=== PATIENT | female | born 1945 | race Caucasian/White ===

== ENCOUNTER 2016-10-27 09:44 | Outpatient (CLI) | payer OTHER ==
--- NOTE | 2016-10-27 11:28 | DIAGNOSTIC IMAGING REPORT ---
PROCEDURE: MR LTD LOWER EXT JOINT-RIGHT INDICATION: RT KNEE OSTEOARTHRITIS (CHANG/NEPHEW PROTOCOL) Chang and Nephew protocol for preop knee replacement. TECHNIQUE: Limited MRI of the knee was performed with high-resolution PD sagittal images. In addition, AP radiographs of the lower extremity were obtained with scanogram markers. Diagnostic interpretation is not provided. IMPRESSION: 1. Preoperative Chang and Nephew protocol for knee prosthesis.
== END 2016-10-27 23:00 ==
LOC: MRI SRH 09:44
DX: Z01.818 Encounter for other preprocedural examination (principal); M17.11 Unilateral primary osteoarthritis, right knee

== ENCOUNTER 2016-12-10 12:10 | Outpatient (CLI) | payer OTHER ==
--- NOTE | 2016-12-10 12:51 | DIAGNOSTIC IMAGING REPORT ---
PROCEDURE: XR CHEST 2 VIEW INDICATION: PRE OP TECHNIQUE: PA and lateral views. COMPARISON: Chest 07/09/2011 FINDINGS: Lungs are clear. Heart and mediastinum are normal. Thorax is normal. IMPRESSION: 1. Negative chest.
--- NOTE | 2016-12-16 14:24 | Postoperative Progress Note ---
Postop Progress Note Preoperate Diagnosis: OA right knee Postoperative Diagnosis: Same Surgeon: Jaya Grossman MD Anesthesia: General ETT Findings: OA right knee Procedure: Right TKA Complications? No Condition: Stable EBL: 300cc Fluid(s): 0 Blood Administered: 0 Specimen(s) removed? Yes Specimen removed/disposition: Bone and tissue right knee Grafts or Implants? Yes Graft/Implant type: Right TKA . (See nursing notes for details of grafts/implants)
== END 2016-12-10 23:00 ==
LOC: RT SRH 12:10
DX: Z01.818 Encounter for other preprocedural examination (principal)
CPT/HCPCS: 90001; 90004; 90074; 90100; 90155; 90469; 91004; 91239; 91286; 94060; 95059; 95150

== ENCOUNTER 2016-12-11 15:37 | Inpatient (IN) | payer OTHER ==
--- NOTE | 2016-12-10 12:52 | HISTORY AND PHYSICAL ---
ADMITTED: 12/16/2016 CHIEF COMPLAINT: 1. Right knee pain. 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 She also having giving way episodes and says she has had several falls. More recently, she fell and injured her back and she would like to proceed with a knee replacement surgery as planned. The patient will be coming on 12/16/2016 for that surgery and the nature of the surgery, how I would go about doing it, where the incision would be, the type of prosthetic components that would be used, the risk of infection, of need for further surgery, of failure, of stiffness, of pain, of blood clots in the leg, were all explained to her and she understands and accepts and would like to proceed with surgery. MEDICAL/SURGICAL HISTORY: Past history is positive only for osteoarthritis and for hypertension and she otherwise has been healthy. Denies any other serious medical illness including DE, CVA, diabetes or cancer of any kind. MEDICATIONS: 1. Amlodipine 5 mg a day. 2. Atenolol. I do not have the dosage which she takes once a day. 3. Magnesium oxide 400 mg a day. 4. Potassium supplementation daily. 5. Sertraline 50 mg daily. 6. Excedrin. 7. Tylenol as needed for pain. 8. Glucosamine. 9. Fish oil concentrate. 10. Mattaponi howe naturopathic remedy. 11. She takes vitamin C 1000 mg a day. 12. Vitamin D3, 1000 units a day. ALLERGIES: 1. PENICILLIN CAUSES HER TO HAVE A RASH AND HIVES. SOCIAL HISTORY: Negative for smoking and says she was never smoker. FAMILY HISTORY: REVIEW OF SYSTEMS: Negative except for the knee problems and she denies any headache, loss of consciousness, seizure disorder, problems with vision, hearing, or balance at this time and she has had no chest pain or shortness of breath, palpitations. No nausea, vomiting, or diarrhea. No dysuria. No other musculoskeletal complaints, other than the low back pain and knee pain as described above. PHYSICAL EXAMINATION: VITAL SIGNS: Height 65-1/2 inches, weight of 160, BMI of 26.22, blood pressure 144/82, pulse 68. HEENT: Head is normocephalic and atraumatic. Her eyes are clear. Extraocular muscles are intact. Hearing is grossly normal. There is no drainage from the ear canals. Mouth and posterior oropharynx are clear and teeth are in good repair. Tongue is midline. NECK: Without jugular venous distention. HEART: Regular rate and rhythm without murmur heard. LUNGS: Clear to auscultation. ABDOMEN: Mildly obese. EXTREMITIES: For the knee exam, I will refer you to my previous clinic notes but she does have some chronic edema and pain. LAB/IMAGING: MRI shows her to have significant areas of avascular necrosis involving the medial femoral condyle with large defects being present and erosion of the articular cartilage. IMPRESSION: 1. Arthritis and avascular necrosis of the right knee. PLAN: For knee replacement surgery as outlined above. The risks and benefits were explained to her, all her questions were answered today and she will have the surgery on 12/16/2016 barring unforeseen complication or problem.
[~2016-12-11] VITALS: Ht 167.6 cm; Wt 76.9 kg
[2016-12-12] MEDS ORDERED: AMLODIPINE BESYL5 MG PO (13:46)
[2016-12-12] MEDS ORDERED: ATENOLOL100 MG PO (13:48)
[2016-12-12] MEDS ORDERED: SERTRALINE HCL50 MG PO (13:48)
[2016-12-12] MEDS ORDERED: FLONASE AL50 MCG/ACT (13:49)
[2016-12-12] MEDS ORDERED: MAGNESIUM400 M1 PO (13:49)
[2016-12-12] MEDS ORDERED: FISH OIL1000 M1 PO (13:49)
[2016-12-16] VITALS (9 sets, daily range): BP systolic 120–143; BP diastolic 54–84
--- NOTE | 2016-12-16 15:08 | OPERATIVE REPORT ---
DATE OF SURGERY: 12/16/2016 SURGEON: JOSE ALBERTO LIZ MD PREOPERATIVE DIAGNOSIS: 1. Osteoarthritis, right knee POSTOPERATIVE DIAGNOSIS: 1. Osteoarthritis right knee OPERATIONS/PROCEDURES: Operation proposed was a right knee replacement. Operation Performed: Same. PATHOLOGY SPECIMEN: A piece of bone from the femur, tibia, and patella, the menisci, the anterior cruciate ligament and the infrapatellar fat pad. SURGICAL TECHNIQUE: The patient was taken to the operating room, where she was given general anesthetic. A tourniquet was applied to the right thigh and the leg was prepped and draped in the usual sterile fashion. She had a longitudinal incision made directly anteriorly over the knee. It was carried down through subcutaneous tissue. A standard medial parapatellar approach to the knee was performed. A limited medial release was performed and then removed the anterior horns of the menisci, the anterior cruciate ligament and the major portion of the infrapatellar fat pad. The distal femoral cutting block was pinned into place and a distal femoral cut was made and then the patient had I believe was a #4 size femoral block seated into position and pinned in place and we made the anterior, posterior, and chamfer cuts. The block was then removed and we subluxed the tibia forward and put her in maximal flexion, used the extramedullary guide to make the tibial cut and sized the tibia. The original plan had been to use a #3 size tibia but we ended up abusing 4 as it was just a better fit all the way around and we pinned that it place, made the drill hole for the stem and cut out for the pins with the supplied special osteotome from the Chang and Nephew set and then did a trial reduction with the thinnest of the tibial inserts. With this, we were able to get full extension and full flexion without difficulty. She was stable throughout. Patellar tracking was good and then removed the trial instruments, exsanguinated the limb and inflated the tourniquet to 350 mmHg. I made the patellar cut and sized it. It was found to be 32 mm size and we made the drill holes for the lugs on the patellar component and then chamfered the margins where the patella was a little bit wider than it was long and chamfered off the medial and lateral side to match and then undercut the holes with a small curette. She had pulse lavaging of the knee and we cleaned up what remaining little bits of soft tissue liked they might impinge but we removed the meniscal in their entirety by this point as well as the anterior cruciate ligament and again the major portion of the infrapatellar fat pad. After cleaning and drying the cut surfaces of the bone, we took methylmethacrylate cement that had been vacuum mixed, placed it on the cut surface of the tibia on the back side of the tibial component, seated it down into place, removed the extruded cement from around the margins, seated the plastic insert on the baseplate and then put more cement on the cut surface of the femur on the back side of the femoral component and she did have a fairly large cyst in the medial femoral condyle that was removed. There were a couple of them. Actually one of them was pretty much remove when we made the drill holes for the lugs and the another one had curetted out and filled it with cement and then put the femoral component into place, seated it down in place, removed the extruded cement, put the knee in extension, more cement was placed on the cleaned and dried surface of the patella for the backside of the patellar component. It was clamped in place. The cement was removed from around the margins and the clamp was left in place while the cement hardened. Once it did, we went through a range of motion and again she had full flexion and full extension immediately possible, she was stable. The patella had a slight tendency to tilt laterally and so I did a limited lateral release just along the margin of the patella on the lateral side and with this then, the patellar tracking was better and we closed using #2-0 nonabsorbable braided suture running from bottom to top and then oversewing along the margin of the patella with more running #2 nonabsorbable braided suture. The subcutaneous layer was closed with 2-0 Polysorb running suture and the skin with a 3-0 Polysorb running suture and we did deflate the tourniquet before closing the skin. Once it was closed, we dressed her with Xeroform and ABD pads, wrapped with a sterile Webril and Kishor bandage loosely applied. I did inject Dr. Hamilton's combination of local anesthetics and Decadron into the knee, around the femur prior to the closure and she tolerated that without any problem and after the knee was closed and dressed, she was awakened and taken to the recovery room in stable condition. Estimated blood loss was about 300 mL. There were no complications encountered.
--- NOTE | 2016-12-16 15:12 | DIAGNOSTIC IMAGING REPORT ---
PROCEDURE: XR KNEE 1 OR 2 VIEWS - RIGHT INDICATION: post-op right tka TECHNIQUE: Two-views COMPARISON: Right knee films 10/15/16 FINDINGS: The patient is status post a total knee replacement on the right. The components are in good position. IMPRESSION: 1. Status post right total knee replacement
[2016-12-17 01:50] VITALS: BP 132/54
[2016-12-17 06:26] VITALS: BP 125/68
[2016-12-17 10:52] VITALS: BP 122/57
[2016-12-17 14:30] VITALS: BP 129/66
--- NOTE | 2016-12-17 14:34 | Progress Note ---
Subjective General VSS Afeb Moderate pain, no other c/o. Doing well with PT Continue PT. Celebrex round the clock and Oxycodone prn for pain.
--- NOTE | 2016-12-17 14:34 | Progress Note ---
Subjective General VSS Afeb Moderate pain, no other c/o. Doing well with PT Continue PT. Celebrex round the clock and Oxycodone prn for pain.
[2016-12-17 18:35] VITALS: BP 124/58
[2016-12-17 22:49] VITALS: BP 122/61
[2016-12-18 01:55] VITALS: BP 137/64
[2016-12-18 06:29] VITALS: BP 139/68
--- NOTE | 2016-12-18 07:13 | Progress Note ---
Subjective General VSS Afeb No c/o, mod pain. Continue PT DC IV
--- NOTE | 2016-12-18 07:13 | Progress Note ---
Subjective General VSS Afeb No c/o, mod pain. Continue PT DC IV
[2016-12-18] MEDS ORDERED: OXYCODONE IR PO (07:14)
[2016-12-18] MEDS ORDERED: ROXICODONE5 MG PO (07:16)
[2016-12-18 11:06] VITALS: BP 132/73
[2016-12-18 14:00] VITALS: BP 136/68
[2016-12-18 18:23] VITALS: BP 169/84
[2016-12-18 23:10] VITALS: BP 168/74
[2016-12-19 02:31] VITALS: BP 166/81
[2016-12-19 06:44] VITALS: BP 174/87
--- NOTE | 2016-12-19 08:00 | Progress Note ---
Subjective General BP up Afeb Tmax 99 Feels better, pretty good pain control with PO Oxycodone Bandage dry and clean Wants to go home. She's been doing OK with PT. DC home today.
[2016-12-19] MEDS ORDERED: OXAYDO5 MG PO (08:05)
--- NOTE | 2016-12-19 08:07 | Provider's Discharge Care Plan ---
Problem, Goal, Plan Problem List 1. Osteoarthritis, knee
--- NOTE | 2016-12-19 08:07 | Provider's Discharge Care Plan ---
Problem, Goal, Plan Problem List 1. Osteoarthritis, knee
--- NOTE | 2016-12-19 08:34 | DISCHARGE SUMMARY ---
ADMIT DATE: 12/16/2016 DISCHARGE DATE: 12/19/2016 DISCHARGE DIAGNOSIS: Arthritis of the right knee. HISTORY OF PRESENT ILLNESS: The patient had arthritis of the knee and got progressively more severe and had come to the point where no conservative treatment was helping for her pain and she was admitted for knee replacement surgery. HOSPITAL COURSE: The patient was admitted to the hospital and underwent surgery for right knee replacement on the date of admission. Postoperatively, no serious complications were encountered. By the time of discharge, she was making good progress with physical therapy. Her bandages were clean and dry. Her maximum temperature was only 99 and she was feeling better. Her pain was controlled well with p.o. pain medications and she wanted to be discharged home and was discharged in good condition on 12/19/2016 to continue with her regular medications as prescribed by her primary care physician. She will also take an aspirin 325 mg twice daily and I ordered oxycodone that she can take 5 mg 1-2 tabs every 4 hours as needed for pain. She will follow up in our orthopedic clinic in 6 days. Condition at discharge is stable. The prognosis is good. The discharge status is home.
[2016-12-19 09:55] VITALS: BP 116/52
== END 2016-12-19 11:00 | disposition home or self-care (01) | DRG 470 ==
LOC: SCU SRH 12-16 09:05 → U SRH 12-16 11:00 → ACUTE2 SRH 12-16 15:34
PROVIDERS: ADMIT Orthopaedic Surgery
PROC: 0SRC0J9 Replacement of Right Knee Joint with Synthetic Substitute, Cemented, Open Approach (ICD-10-PCS; principal; 2016-12-16 11:00)
DX: M17.11 Unilateral primary osteoarthritis, right knee (principal); M87.9 Osteonecrosis, unspecified; M89.751 Major osseous defect, right pelvic region and thigh; I10 Essential (primary) hypertension

== ENCOUNTER 2017-03-15 17:30 | Emergency (ER) | payer OTHER ==
[~2017-03-15 17:30] MED LIST: AMLODIPINE BESYL5 MG PO; ATENOLOL100 MG PO; FISH OIL1000 M1 PO; FLONASE AL50 MCG/ACT; MAGNESIUM400 M1 PO; OXAYDO5 MG PO; OXYCODONE IR PO; ROXICODONE5 MG PO; SERTRALINE HCL50 MG PO
--- NOTE | 2017-03-15 19:03 | DIAGNOSTIC IMAGING REPORT ---
PROCEDURE: XR CHEST 1 VIEW INDICATION: SHORTNESS OF BREATH TECHNIQUE: Portable AP view (1755 hours) COMPARISON: Compared to chest x-ray on 12/10/2016. FINDINGS: Allowing for overlying wires and electrodes, lungs are clear. Borderline cardiomegaly with pulmonary vascular congestion. No evidence of interstitial edema. Mediastinum is normal. Moderate levoscoliosis of the thoracolumbar spine with degenerative changes. IMPRESSION: 1. Borderline cardiomegaly and pulmonary vascular congestion. While there is no evidence of interstitial edema, consider the possibility of occult congestive heart failure. 2. Otherwise negative chest. 3. Findings discussed with Dr. Erlinda Larios.
--- NOTE | 2017-03-15 22:04 | ED ORDER SUMMARY ---
..... Patient: FABIÁN MOHAN OrderSheet [facility] VisitID: [id number] [place] [address] 72y, F Registration Date/Time: 03/15/2017 ORDER SHEET Weight: 71.6 kg (stated) Allergies: Penicillin GENERAL ORDERS: [employer] Project Manager (Continuous) (17:45 03/15/2017 JSimbeck R.N. per protocol) (17:45 JSimbeck R.N.) Chest 1V Urgent (17:45 03/15/2017 JSimbeck R.N. per protocol) (Ack 17:54 Chelsea) (18:36 WDavenptracy) CBC w Diff Urgent (17:45 03/15/2017 JSimbeck R.N. per protocol) (17:45 JSimbeck R.N.) CMP Urgent (17:45 03/15/2017 JSimbeck R.N. per protocol) (17:45 JSimbeck R.N.) Cardiac Panel Stat (17:45 03/15/2017 JSimbeck R.N. per protocol) (17:45 JSimbeck R.N.) PT with INR Urgent (17:45 03/15/2017 JSimbeck R.N. per protocol) (17:45 JSimbeck R.N.) PTT Urgent (17:45 03/15/2017 JSimbeck R.N. per protocol) (17:45 JSimbeck R.N.) Pulse oximeter (17:45 03/15/2017 JSimbeck R.N. per protocol) (17:45 JSimbeck R.N.) EKG - ER Stat (17:45 03/15/2017 JSimbeck R.N. per protocol) (17:45 JSimbeck R.N.) (17:46 PWeiler ER Tech1) UA-Culture if indicated Urgent (18:46 03/15/2017 Day ROLLE) (Ack 18:54 Chelsea) (20:07 DDean R.N.) BNP Urgent (19:12 03/15/2017 Day ROLLE) (Ack 19:32 [place] ER Macadam Raker) (22:12 RMarsden R.N.) US Abdomen Limited (No) Urgent (20:41 03/15/2017 Day ROLLE) (Ack 20:46 [facility] ER Macadam Raker) (22:29 Daria CorreiaNLuz) MEDICATION ORDERS: IV FLUIDS: IV Saline Lock (17:45 03/15/2017 Kimberley Mccormick.NLuz per protocol) (17:46 Kimberley Mccormick.N.) Lasix IV 80 mg (NOW) (19:28 03/15/2017 Day ROLLE) (Ack 20:09 Mika R.N.) (20:15 Mkia R.N.) ORDER SHEET NOTES: [Electronically signed by Erlinda Larios MD (22:06 03/15/2017)] [Electronically signed by Kristen Barajas R.N. (14:51 03/16/2017)] [Electronically locked/signed by Kristen Barajas R.N. (14:51 03/16/2017)]
--- NOTE | 2017-03-15 22:04 | ED NURSING NOTES ---
Clinical Report - Nurses [facility] [address] [place] [address] 03/15/2017 17:31 [id number] Triage time 17:35. Acuity: LEVEL 3. Chief Complaint: (Onset 3 days ago: Chills, "hot sweats", legs and arms "feel like weight", diarrhea, abd pain without nauasea, "head kind of foggy", SOB with any activity. 8/10 pain in her back, neck, shoulders, increases with breathing.). SEPSIS SCREEN: Sepsis Screen. Negative (no infection suspected/documented). JESUS ALBERTO COMA SCORE: Jesus Alberto Coma Scale: 15- eyes open spontaneously (4); best verbal response- oriented x 4 (5); best motor response- obeys commands (6). --17:44 Noe Segovia R.N. 17:34 03/15/17. BP: 152/64. HR: 93. RR: 16. O2 saturation: 95% on room air. Temp: 98.1 F (oral). Pain level now: 8/10. --17:44 Noe Segovia R.N. Weight: 71.6 kg stated. Height/Length: 66 inches Per Patient. BMI: 25.5. --17:39 Noe Segovia R.N. Medications AmLODIPine Besylate Oral. --17:38 Noe Segovia R.N. Atenolol Oral. --17:38 Noe Segovia R.N. Sertraline HCl Oral. --17:39 Noe Segovia R.N. Allergies Penicillin. --17:38 Noe Segovia R.N. History Arrived by private vehicle. Historian: patient. Accompanied by family. SOCIAL HX: Never smoker. Occasional alcohol use. No drug use. ABUSE ASSESSMENT: No report of abuse. --17:44 Noe Segovia R.N. PROBLEMS: Depression. Hypertension. --17:40 Noe Segovia R.N. ADDITIONAL SURGERIES: Hysterectomy. Right knee replacement. --17:40 Noe Segovia R.N. Interventions ID band on patient. To treatment room. --17:44 Noe Segovia R.N. PHYSICAL ASSESSMENT late entry -17:39. Ambulatory to room. ( upper back and bilat shoulder pain). GENERAL / NEURO / PSYCH: Alert. Oriented X 4. Appears in pain. HEENT: Pupils equal, round and reactive to light. No facial asymmetry noted. Mucous membranes are pink. RESPIRATORY: Mild respiratory distress. The patient can speak in full sentences. Chest nontender. Breath sounds within normal limits. CVS: Cardiac rhythm: normal sinus rhythm; right bundle branch block. Capillary refill less than 2 seconds. Pulses within normal limits. GI / : Abdomen soft and normal bowel sounds. Abdominal tenderness diffusely. SKIN: Skin is warm and dry. Normal skin turgor. --19:25 Noe Segovia R.N. NURSING PROGRESS NOTES 17:40 03/15/2017 Site #1 started via IV in the right antecubital space with an 18g angiocath, with aseptic technique and good blood return; one attempt. Blood drawn: rainbow set. Labeled in the presence of the patient and sent to the lab. Saline lock flushed with 10 mL saline (by ZULLY Reyes). --17:46 Noe Segovia R.N. 17:45 03/15/17. HR: 44 (regular). ED physician notified. --17:57 Noe Segovia R.N. 20:00. Patient ID band checked for patient name and birthdate. Clean catch urine collected with return of yellow-colored ck-colored clear urine; sample sent to lab for urinalysis and culture. Specimen labeled in the presence of the patient. ( First contact with pt. Pt given additional blanket and UA sent to lab). --20:08 Kristen Barajas R.N. 20:10 03/15/2017 Lasix IVP 80 mg given over 2 minute(s) via site #1. IV patency established. IV site checked: no pain, redness, or swelling. IV flushed thoroughly pre- and post-medication administration. IVP given by RN. --20:15 Kristen Barajas R.N. 20:00 03/15/17. BP: 133/66. HR: 44. RR: 16. O2 saturation: 98%. Temp: deferred. Pain level now: 0/10. --20:16 Kristen Barajas R.N. 20:17 03/15/17. ( ERMD in to talk with pot about CHF findings and need for lasix. talking with pt a bout US ordered, and liver function tests). --20:17 Kristen Barajas R.N. The patient reports no complaints and she is calm. Overall patient status is improved- she states feels better. ( better while laying down). --20:41 Gia John R.N. 20:37 03/15/17. BP: 133/111. HR: 52. RR: 16. O2 saturation: 97%. Temp: 98.1 F. Pain level now 0/10. --20:41 Gia John R.N. DISPOSITION / DISCHARGE 22:19 03/15/2017 Site #1 removed upon discharge. Manual pressure and bandaid applied. --22:29 Cornelia Sutton R.N. 22:24. No learning barriers present. Discharge instructions provided and reviewed with the patient and spouse. Reviewed warnings. Treatments reviewed. Reviewed referrals. Follow up contact number. Patient and spouse verbalized understanding. Written instructions provided in Greenlandic. The patient was discharged home and accompanied by spouse. She left the Emergency Department in a wheelchair and via private vehicle. Spouse driving. --22:37 Cornelia Sutton R.N. 22:03/15/17. BP: 136/65. HR: 50. RR: 16. O2 saturation: 100%. Temp: deferred. Pain level now: 0/10. --22:37 Cornelia Sutton R.N. Locked/Released at 03/16/2017 14:51 by Kristen Barajas R.N.
--- NOTE | 2017-03-15 22:04 | ED CLINICAL REPORT ---
Clinical Report - Physicians/Mid Levels [facility] [address] [place] [address] 03/15/2017 17:31 Patient: FABIÁN MOHAN Time Seen: 17:53. Arrived- By private vehicle. Historian- patient. HISTORY OF PRESENT ILLNESS Chief Complaint: DYSPNEA. This started several days ago and is still present. The dyspnea is described as moderate and is worsened by walking and exertion and is improved by rest. No cough, sputum production, fever, sweating episodes or wheezing. No chills, chest pain or discomfort, calf pain or orthopnea. No anxiety, dizziness, tingling, numbness or palpitations. The patient has had dyspnea on exertion. She has had mild right foot swelling (patient is 3 months status post total knee arthroplasty on the right She states she has been up and about regularly since.). Similar symptoms previously: None. Recent medical care: Not recently seen/assessed. REVIEW OF SYSTEMS The patient has not had weight loss. No muscle aches, eye irritation, sore throat, nasal discharge or sinus drainage. No nausea, vomiting, abdominal pain, diarrhea or black stools. No bloody stools, headache, fainting episodes, blurred vision or difficulty with urination. No skin rash, enlarged lymph nodes or joint pain. All systems otherwise negative, except as recorded above. PAST HISTORY Problems: Depression. Hypertension. Additional Surgeries: Hysterectomy. Right knee replacement. Medications: Sertraline HCl Oral. Atenolol Oral. AmLODIPine Besylate Oral. Allergies: Penicillin. SOCIAL HISTORY Never smoker. Occasional alcohol use. No drug use. ADDITIONAL NOTES The nursing notes have been reviewed. PHYSICAL EXAM Vital Signs: 03/15/2017 17:35 BP: 152/64. HR: 93. RR: 16. O2 saturation: 95%. Temp: 98.1 F. Pain level now: 8/10. Have been reviewed. Appearance: Alert. No acute distress. Eyes: Pupils equal, round and reactive to light. Eyes normal inspection. ENT: Nose normal. Neck: Normal inspection. Neck supple. CVS: Bradycardia. Heart sounds normal. Pulses normal. Respiratory: No respiratory distress. Breath sounds normal. Abdomen: Soft and nontender. Back: Normal inspection. No CVA tenderness. Skin: Skin warm and dry. Normal skin color. No rash. Normal skin turgor. Extremities: Extremities exhibit normal ROM. (mild, nonpitting edema of the right ankle and foot). Neuro: Oriented X 3. No motor deficit. No sensory deficit. LABS, X-RAYS, AND EKG EKG: EKG time: (1738). No acute ischemia. Rate: 47. Narrow-complex bradycardia. Sinus bradycardia. Left atrial enlargement. Normal EDDIE. RBBB. Normal axis. Normal ST and T waves, QT and QTc. Prior EKG unavailable. The study has been interpreted contemporaneously by me. The study has been independently viewed by me. The EKG appears to be a good tracing. I agree with and confirm the computer reading of the EKG. Rhythm Strip #1: Time: (1750). Rate= 46. Sinus bradycardia. Regular rhythm. Narrow QRS complexes. No ectopy. Conduction normal. Normal ST segments and T waves. The study was interpreted by me. Chest X-ray: Borderline cardiomegaly with signs of vascular congestion. Mediastinum normal. Great vessels normal. Soft tissues normal. No fracture. No bony lesion present. Views: AP (portable). Technique: good. The X-rays were independently viewed by me, interpreted by the radiologist and contemporaneously by me and discussed with the radiologist. Prior films were not available for comparison. Abdominal Sonogram: Gallstones are present. Common duct is normal. Normal liver. Pancreas normal. No free fluid. No gallbladder wall thickening, pericholecystic fluid, dilated common duct or common duct stones. Study included the gallbladder and upper abdomen. Prior studies were not available for comparison. The study was interpreted by the radiologist and discussed with the radiologist. Laboratory Tests: CBC w Diff: (LEONARD: 03/15/2017 17:42) ( MsgRcvd 03/15/2017 18:01) Final results Test Result Flag Units (Reference) WHITE BLOOD COUNT 7.1 K/uL (4.5-11.5) RED BLOOD COUNT 4.43 M/uL (4.00-5.20) HEMOGLOBIN 12.9 gm/dL (12.0-16.0) HEMATOCRIT 39.2 % (36.0-46.0) MEAN CELL VOLUME 88 fL (80-100) MEAN CORPUSCULAR HGB 29 pg (26-34) MEAN CORPUSCULAR HGB CONC 33 g/dL (31-37) RED CELL DISTRIBUTION WIDTH 15.5 H % (11.6-14.8) PLATELET COUNT 257 K/uL (150-400) NEUTROPHIL % 67.3 % (50-75) LYMPH % 18.0 L % (25-40) MONO % 12.6 % (3-14) EOSINOPHIL % 1.6 % (0-4) BASOPHIL % 0.5 % (0-2) PT with INR: (LEONARD: 03/15/2017 17:42) ( [facility] 03/15/2017 18:08) Final results Test Result Flag Units (Reference) INR 0.9 (0.8-1.2) Low Intensity Therapy: INR 1.5-2.0 PT range 18.5-23.1Mod.Intensity Therapy: INR 2.0-3.0 PT range 23.1-31.5High Intensity Therapy: INR 2.5-3.5 PT range 27.4-35.5High Intensity Therapy 2: INR 3.0-4.0 PT range 31.5-39.3 APTT 22 L SECONDS (24-34) BNP: (LEONARD: 03/15/2017 17:42) ( [facility] 03/15/2017 19:37) Final results Test Result Flag Units (Reference) B-TYPE NATRIURETIC PEPTIDE 532 H pg/ml (5-100) CHEM 13 PANEL: (LEONARD: 03/15/2017 17:42) ( [facility] 03/15/[place] 18:13) Final results Test Result Flag Units (Reference) GLUCOSE 114 H mg/dL (70-110) BUN 30 H mg/dL (7-18) CREATININE 1.1 mg/dL (0.6-1.3) Estimated GFR 51.60 mL/min Estimated GFR- >60 mL/min Note: Persistent reduction over 3 months in eGFR<60 mL/min/1.73 m2 defines CKD. Patients with eGFR values>=60 mL/min/1.73 m2 may also have CKD if evidence ofpersistent proteinuria. Additional information may be foundat www.kidney.org. SODIUM 142 mmol/L (136-145) POTASSIUM 4.0 mmol/L (3.5-5.1) CHLORIDE 105 mmol/L (98-107) CARBON DIOXIDE 25 mmol/L (21-32) CALCIUM 9.0 mg/dL (8.5-10.1) TOTAL PROTEIN 6.8 g/dL (6.4-8.2) ALBUMIN 3.5 g/dL (3.3-5.0) BILIRUBIN, TOTAL 0.4 mg/dL (0.0-1.0) ALKALINE PHOSPHATASE 128 H U/L (46-116) AST (SGOT) 143 H U/L (15-37) ALT (SGPT) 258 H U/L (12-78) CPK 68 U/L (24-260) MAGNESIUM 2.4 mg/dL (1.8-2.4) TROPONIN I <0.05 L ng/mL (0.00-1.5) TROPONIN REFERENCE RANGE:<0.1 NEGATIVE0.1-1.5 INDETERMINANT>1.5 POSITIVE . Pulse Oximetry: 03/15/2017 17:35 O2 saturation: 95%. (FIO2 - room air). Interpretation: normal. PROGRESS AND PROCEDURES Course of Care: The patient was worked up for her shortness of breath with labs, EKG, and chest x-ray. Patient was found to have an elevated BNP as well as findings on chest x-ray which supported congestive heart failure. She was given 80 mg of Lasix IV, with good response. Patient was also found to have elevated LFTs, and stated she did not have any history of any liver problems. As such, she was evaluated with an ultrasound of the abdomen, which showed gallstones, but no cholecystitis. Given the patient's bradycardia and new onset congestive heart failure, I did discuss with the patient and her the possibility of admission to the hospital versus expedited follow-up with her primary care physician, Dr. Pineda. Patient stated she would prefer to go home, and so I did speak with Dr. Pineda to make a plan for this patient in follow-up. Dr. Pineda stated that she would see the patient tomorrow, and that the patient should call her office first thing in the morning 8:00. If the patient was unable to get an appointment tomorrow with the staff, patient should either leave a message for Dr. Pineda's nurse, or show up at the clinic at noon to be seen by Dr. Pineda. I did relay this plan to the patient. I have also asked the patient to hold her atenolol tomorrow given the congestive heart failure and the bradycardia. I will defer starting any outpatient diuretics to Dr. Pineda's judgment. Patient and spouse counseled in person regarding the patient's stable condition, test results, diagnosis and need for follow-up. Old medical records reviewed. Disposition: Discharged. Condition: stable. CLINICAL IMPRESSION Acute moderate congestive heart failure Sinus bradycardia Gallbladder disease with multiple gallstones. No obstruction, cholecystitis, biliary colic or cholangitis. INSTRUCTIONS (Our labs show that you have congestive heart failure, which is also confirmed by your chest x-ray. This is likely the cause of your shortness of breath and fatigue with walking. Additionally, you been found to have a heart rate lower than normal, in the 40s. As such, you should hold your atenolol in the morning. It is not clear why your liver enzymes are elevated. Your ultrasound shows stones in your gallbladder, but none of them are blocking the duct which drains the gallbladder. Your case has been discussed with Dr. Pineda, who would like to see you in her clinic tomorrow. She would like you to call first thing in the morning when her clinic opens, at 8:00, and tell her staff that the emergency physician spoke with her and that she wanted you to follow up tomorrow. If the staff does not give you an appointment for tomorrow please ask to be transferred to Dr. Pineda's nurse. Dr. Pineda has said that if you do not hear back from the nurse, or cannot get through to her, to come to the clinic at noon, and Dr. Pineda will see you.). Warnings: GENERAL WARNINGS: Return or contact your physician immediately if your condition worsens or changes unexpectedly, if not improving as expected, or if other problems arise. Your Current Medications: STOP TAKING THE FOLLOWING MEDICATIONS: Atenolol Oral. CONTINUE TAKING THE FOLLOWING MEDICATIONS: AmLODIPine Besylate Oral. Sertraline HCl Oral. Understanding of the discharge instructions verbalized by patient. Discharge instructions reviewed with and understanding was verbalized by spouse. Follow-up with: Yoselin Pineda MD, [facility], , [facility], [address] [place] [address] Follow up tomorrow. Reason for referral: Follow up ER visit, as per Dr. Pineda's request. Call at 8:00 AM to get an appointment for tomorrow. (Electronically signed by Erlinda Larios MD 03/15/2017 22:06)
--- NOTE | 2017-03-15 22:04 | ED ORDER SUMMARY ---
..... Patient: FABIÁN MOHAN OrderSheet [facility] VisitID: [id number] [place] [address] 72y, F Registration Date/Time: 03/15/2017 ORDER SHEET Weight: 71.6 kg (stated) Allergies: Penicillin GENERAL ORDERS: Sleep Medicine Physician (Continuous) (17:45 03/15/2017 JSimbeck R.N. per protocol) (17:45 JSimbeck R.N.) Chest 1V Urgent (17:45 03/15/2017 JSimbeck R.N. per protocol) (Ack 17:54 Chelsea) (18:36 WDavenptracy) CBC w Diff Urgent (17:45 03/15/2017 JSimbeck R.N. per protocol) (17:45 JSimbeck R.N.) CMP Urgent (17:45 03/15/2017 JSimbeck R.N. per protocol) (17:45 JSimbeck R.N.) Cardiac Panel Stat (17:45 03/15/2017 JSimbeck R.N. per protocol) (17:45 JSimbeck R.N.) PT with INR Urgent (17:45 03/15/2017 JSimbeck R.N. per protocol) (17:45 JSimbeck R.N.) PTT Urgent (17:45 03/15/2017 JSimbeck R.N. per protocol) (17:45 JSimbeck R.N.) Pulse oximeter (17:45 03/15/2017 JSimbeck R.N. per protocol) (17:45 JSimbeck R.N.) EKG - ER Stat (17:45 03/15/2017 JSimbeck R.N. per protocol) (17:45 JSimbeck R.N.) (17:46 PWeiler ER Tech1) UA-Culture if indicated Urgent (18:46 03/15/2017 Day ROLLE) (Ack 18:54 Chelsea) (20:07 DDean R.N.) BNP Urgent (19:12 03/15/2017 Day ROLLE) (Ack 19:32 [place] ER Java Web Architect) (22:12 RMarsden R.N.) US Abdomen Limited (No) Urgent (20:41 03/15/2017 Day ROLLE) (Ack 20:46 [facility] ER Java Web Architect) (22:29 Daria CorreiaNLuz) MEDICATION ORDERS: IV FLUIDS: IV Saline Lock (17:45 03/15/2017 Kimberley Mccormick.NLuz per protocol) (17:46 Kimberley Mccormick.N.) Lasix IV 80 mg (NOW) (19:28 03/15/2017 Day ROLLE) (Ack 20:09 Mika R.N.) (20:15 Mika R.N.) ORDER SHEET NOTES: [Electronically signed by Erlinda Larios MD (22:06 03/15/2017)] [Electronically signed by Kristen Barajas R.N. (14:51 03/16/2017)] [Electronically locked/signed by Kristen Barajas R.N. (14:51 03/16/2017)]
--- NOTE | 2017-03-15 23:32 | DIAGNOSTIC IMAGING REPORT ---
PROCEDURE: US ABDOMEN ULTRASOUND-LIMITED INDICATION: Abnormal liver function studies. TECHNIQUE: [place] scale and color Doppler sonographic images of the abdomen were obtained. COMPARISON: Comparison is made to CT angiogram of the abdomen on 01/28/2016. FINDINGS: There are multiple layering and shadowing gallstones. No evidence of gallbladder wall thickening (2 mm). Common duct is normal (3 mm). Portions of the liver, aorta, and pancreas are seen, and are normal. Right kidney is of normal size (9.9 cm) with generalized cortical thinning. IMPRESSION: 1. Cholelithiasis (multiple layering gallstones). 2. Mild generalize renal cortical thinning. 3. Otherwise negative ultrasound of the right upper quadrant.
--- NOTE | 2017-03-16 14:51 | ED MED RECONCILIATION SUMMARY ---
Patient: FABIÁN MOHAN Medication Reconciliation Report [facility] VisitID: [id number] [address] [place] [address] 72y, F Registration Date/Time: 03/15/2017 Weight: 71.6 kg Height/Length: 66 in. BMI: 25.5 ALLERGIES: Penicillin The patient's Home Medications are listed below: STOP TAKING THE FOLLOWING MEDICATIONS: Atenolol Oral CONTINUE TAKING THE FOLLOWING MEDICATIONS: AmLODIPine Besylate Oral Sertraline HCl Oral The source(s) of the original Home Medication information: Not obtained. The following Medications were given to the patient in the Emergency Department: Lasix [IVP] IVP 80 mg, administered: 03/15/2017 8:10:00 PM The following Medications were prescribed to the patient: None.
--- NOTE | 2017-03-16 14:51 | ED MAR SUMMARY ---
..... Medication Administration Record [facility] [address] [place] [address] Patient: FABIÁN MOHAN Visit ID: [id number] 72y, F Weight: 71.6 kg Height/Length: 66 in BMI: 25.5 ALLERGIES: Penicillin Given 20:10 03/15/2017 Karl, Diana Peterson Medication Administered: LASIX [IVP], Dose: 80 mg IVP over 2 minute(s), Site: #1 right AC. Medication Ordered: Lasix IV 80 mg (NOW).
--- NOTE | 2017-03-16 14:51 | ED MED RECONCILIATION SUMMARY ---
Patient: FABIÁN MOHNA Medication Reconciliation Report [facility] VisitID: [id number] [address] [place] [address] 72y, F Registration Date/Time: 03/15/2017 Weight: 71.6 kg Height/Length: 66 in. BMI: 25.5 ALLERGIES: Penicillin The patient's Home Medications are listed below: STOP TAKING THE FOLLOWING MEDICATIONS: Atenolol Oral CONTINUE TAKING THE FOLLOWING MEDICATIONS: AmLODIPine Besylate Oral Sertraline HCl Oral The source(s) of the original Home Medication information: Not obtained. The following Medications were given to the patient in the Emergency Department: Lasix [IVP] IVP 80 mg, administered: 03/15/2017 8:10:00 PM The following Medications were prescribed to the patient: None.
--- NOTE | 2017-03-16 14:51 | ED MAR SUMMARY ---
..... Medication Administration Record [facility] [address] [place] [address] Patient: FABIÁN MOHAN Visit ID: [id number] 72y, F Weight: 71.6 kg Height/Length: 66 in BMI: 25.5 ALLERGIES: Penicillin Given 20:10 03/15/2017 Karl, Diana Peterson Medication Administered: LASIX [IVP], Dose: 80 mg IVP over 2 minute(s), Site: #1 right AC. Medication Ordered: Lasix IV 80 mg (NOW).
--- NOTE | 2017-03-16 14:51 | ED DISCHARGE INSTRUCTIONS ---
Patient: FABIÁN MOHAN General Instructions [facility] VisitID: [id number] [place] [address] 72y, F Registration Date/Time: 03/15/2017 Acute moderate congestive heart failure Sinus bradycardia Gallbladder disease with multiple gallstones. No obstruction, cholecystitis, biliary colic or cholangitis. INSTRUCTIONS (Our labs show that you have congestive heart failure, which is also confirmed by your chest x-ray. This is likely the cause of your shortness of breath and fatigue with walking. Additionally, you been found to have a heart rate lower than normal, in the 40s. As such, you should hold your atenolol in the morning. It is not clear why your liver enzymes are elevated. Your ultrasound shows stones in your gallbladder, but none of them are blocking the duct which drains the gallbladder. Your case has been discussed with Dr. Pineda, who would like to see you in her clinic tomorrow. She would like you to call first thing in the morning when her clinic opens, at 8:00, and tell her staff that the emergency physician spoke with her and that she wanted you to follow up tomorrow. If the staff does not give you an appointment for tomorrow please ask to be transferred to Dr. Pineda's nurse. Dr. Pineda has said that if you do not hear back from the nurse, or cannot get through to her, to come to the clinic at noon, and Dr. Pineda will see you.). Warnings: GENERAL WARNINGS: Return or contact your physician immediately if your condition worsens or changes unexpectedly, if not improving as expected, or if other problems arise. Your Current Medications: STOP TAKING THE FOLLOWING MEDICATIONS: Atenolol Oral. CONTINUE TAKING THE FOLLOWING MEDICATIONS: AmLODIPine Besylate Oral. Sertraline HCl Oral. Understanding of the discharge instructions verbalized by patient. Discharge instructions reviewed with and understanding was verbalized by spouse. Follow-up with: Yoselin Pineda MD, [facility], , [facility], [address] [place] [address] Follow up tomorrow. Reason for referral: Follow up ER visit, as per Dr. Pineda's request. Call at 8:00 AM to get an appointment for tomorrow. ADDITIONAL INFORMATION Heart Failure (Left Or Right Sided) The heart is a large muscle that pumps blood throughout the body. Blood carries oxygen to all the organs, muscles, and skin of your body. After the body takes the oxygen out of the blood, the blood returns to the heart. The right side of the heart collects that blood and pumps it to the lungs to receive fresh oxygen. This oxygen-rich blood from the lungs then returns to the left side of the heart where it is pumped back out to the rest of the body, starting the process all over. Heart Failure (HF) occurs when the heart muscle is weakened. This affects the pumping action of the heart. When the right side of the heart is weakened, it cant handle the blood it is receiving from the rest of the body. This blood returns to the heart through veins. When too much pressure builds up in the veins fluid leaks out into the tissues. Wilder then causes that fluid to spread to those parts of the body that are the lowest. Therefore, one of the first symptoms of HF include swelling in the feet and ankles. If the condition worsens, the swelling can even go up past the knees. When the left side of the heart is weakened, it cant handle the blood it is receiving from the lungs. Pressure then builds up in the veins of the lungs, causing fluid to leakinto the lung tissues. This may be referred to as congestive heart failure.This causes you to feel short of breath, weak, or dizzy. These symptoms are often worse with exertion, such as climbing stairs or walking up hills. Lying flat is uncomfortable and can make your breathing worse. This may make sleeping difficult and force you to useextra pillows to sleep well. This condition may not only affect the right side of the heart or only the left side. While it may have started on one side, it often affects both sides. Causes of heart failure Coronary artery disease Prior heart attack (also known as acute myocardial infarction, or AMI) High blood pressure Damaged heart valve Diabetes Obesity Cigarette smoking Alcohol abuse Treatment Heart failure is a chronic condition. There is no cure. The purpose of medical treatment is to improve the pumping action of the heart, and remove excess water from the body. A number of medications can help achieve this goal,improvesymptoms and prevent the heart from becoming weaker. Another major goal is to better treat the caues of heart failure, such as diabetes, high blood pressure, and your lifestyle. Home care Check your weight every day. A sudden increase in weight gain could mean worsening heart failure. Use the same scale every day Weigh yourself at the same time every day Make sure the scale is on the floor, not on a rug Keep a record of your weight every day, so your doctor can see it. If you are not given a log sheet for this, keep a separate journal for this purpose. Reduce your salt (sodium) intake. Avoid high-salt foods (olives, pickles, smoked meats, salted potato chips, etc.). Do not add salt to your food at the table and use only small amounts of salt when cooking. Follow your doctors recommendations about how much fluid intake is safe. Stop smoking. Reduce alcohol use. Lose weight if you are overweight. The excess weight adds a lot of stress on the workload of the heart. Stay active. Talk to your doctor about an exercise program that is safe for your heart. Keep your feet elevated to reduce swelling. Ask your doctor about support hose as a preventive treatment for daytime leg swelling. Besides taking your medicine as instructed, an important part of treatment includes lifestyle changes such as diet, physical activity, stopping smoking, and weight control. Improve your diet. Often in the hospital, people are given a "heart healthy diet." This includes more fresh foods, lower fat, less processed foots, and lower salt. Follow-up care Follow up with your doctor as directed by our staff. Make sure to keep any appointments that were made for you as this can help better control heart failure. If an X-ray was done, you will be notified of any new findings that may affect your care. Call 911 Call 911 if you: Become severely short of breath Feel lightheaded, or feel like you might pass out or faint Have chest pain or discomfort that is different than usual, the medicines your doctor told you to use for this do not help, or the pain lasts longer than 10 to 15 minutes Suddendly develop a rapid heart rate When to seek medical care Get prompt medical attention if you have any of the following signs of worsening heart failure: Sudden weight gain (3or more pounds in one day or5or more pounds in one week) Trouble breathing not related to being active New or increased swelling of your legs or ankles Swelling or pain in your abdomen Breathing trouble at night (waking up short of breath, needing more pillows to breathe) Frequent coughing that doesnt go away Feeling much more tired than usual Bradycardia Bradycardia is a condition where the heart beats at a slow rate (less than 60 beats per minute). Bradycardia may occur in persons with heart disease, but can also occur in healthy persons. Symptoms include: dizziness, weakness, shortness of breath, chest pain, and fainting. Bradycardia that is causing symptoms can be treated with medicines or a pacemaker, depending on the cause.Bradycardia that is not causing symptoms may be evaluated further by your own doctor in the office. [id number] Causes: Side effect of certain medicines (such as beta-blockers, calcium channel blockers, digitalis, amiodarone, clonidine, lithium) Medical conditions such as hypoglycemia (low blood sugar), hypothyroidism (low thyroid), electrolyte disorder, sleep apnea Athletes, especially long-distance runners, may have a slow heart rate. This can be normal. Heart-Related Causes: Coronary artery disease (angina or prior heart attack, also known as acute myocardial infarction, or AMI) Disease of the heart valves Congestive heart failure Sick sinus syndrome Sometimes the cause for the arrhythmia cannot be found. Home Care: Resume your usual activities when you are feeling back to normal. If you develop any of the symptoms below during exertion, then you should not exert yourself until evaluated further by your doctor. Follow Up with your doctor or as advised by our staff. Get Prompt Medical Attention if any of the following occur: Weakness, dizziness, lightheadedness, or fainting Chest, shoulder, arm, neck, or backpain Shortness of breath Slow heart rate (under 50 beats per minute, at rest) Palpitations (the sense that your heart is fluttering or beating fast or hard or irregular) Difficulty with speech or vision, weakness of an arm or leg Swelling of the ankles You have been given the following additional information: Heart Failure, General Bradycardia (Electronically signed by Erlinda Larios MD 03/15/2017 22:06)
== END 2017-03-15 22:24 | disposition home or self-care (01) ==
LOC: ED SRH 17:30
DX: I11.0 Hypertensive heart disease with heart failure (principal); I50.9 Heart failure, unspecified; K80.20 Calculus of gallbladder without cholecystitis without obstruction; R00.1 Bradycardia, unspecified; R79.89 Other specified abnormal findings of blood chemistry; Z96.651 Presence of right artificial knee joint; Z79.899 Other long term (current) drug therapy; Z88.0 Allergy status to penicillin
CPT/HCPCS: 90004; 90100; 90469; 90616; 91320; 92610; 92720; 94001; 94060; 95059

== ENCOUNTER 2017-03-19 10:11 | Outpatient (CLI) | payer OTHER ==
--- NOTE | 2017-03-19 12:47 | DIAGNOSTIC IMAGING REPORT ---
REFERRING PHYSICIAN/PROVIDER: Yoselin Pineda MD CONSULTING DERMATOLOGY PHYSICIAN ASSISTANT: Esdras Holley MD PROCEDURE: 2D echo, M-mode and complete color and flow Doppler interrogation TECHNICAL QUALITY: Technically difficult INDICATION: SOB; BRADYCARDIA INTERPRETATIONS: CHAMBERS: LEFT ATRIUM: Normal left atrial size. LEFT VENTRICLE: Normal left ventricular size, wall thickness, and hyperdynamic systolic function, EF 72%. Indeterminate diastolic function due to underlying arrhythmia. RIGHT ATRIUM: Mild right atrial enlargement. RIGHT VENTRICLE: Normal right ventricular size and systolic function. VALVES: All valves nonrheumatic unless otherwise indicated. AORTIC VALVE: Trileaflet aortic valve with mild sclerosis. No aortic stenosis. No aortic regurgitation. MITRAL VALVE: Trace mitral regurgitation. No mitral stenosis. TRICUSPID VALVE: Mild tricuspid regurgitation. Estimated pulmonary artery systolic pressure is 34 mmHg. PULMONIC VALVE: No pulmonic regurgitation. MISCELLANEOUS: No pericardial effusion. HEMODYNAMICS: CVP is 3 mmHg. IMPRESSION: 1. Underlying rhythm is irregular. 2. Normal left ventricular size and hyperdynamic systolic function, EF 72%. No wall motion abnormalities. 3. Indeterminate diastolic function due to underlying arrhythmia. 4. No hemodynamically significant valvular abnormalities. 5. Normal right ventricular size and systolic function. 6. Estimated pulmonary artery systolic pressure is 34 mmHg.
== END 2017-03-19 23:00 ==
LOC: US SRH 10:11
DX: I49.9 Cardiac arrhythmia, unspecified (principal); R06.02 Shortness of breath; I50.9 Heart failure, unspecified

== ENCOUNTER 2017-03-20 10:34 | Outpatient (CLI) | payer OTHER | END 2017-03-20 23:00 | LOC: RT SRH 10:34 | PROC: 4A12X45 Monitoring of Cardiac Electrical Activity, Ambulatory, External Approach (ICD-10-PCS; principal; 2017-03-20) | DX: R06.02 Shortness of breath (principal); R00.1 Bradycardia, unspecified; I44.1 Atrioventricular block, second degree; I50.9 Heart failure, unspecified ==

== ENCOUNTER 2017-03-20 16:18 | Outpatient (CLI) | payer OTHER | END 2017-03-20 23:00 | LOC: LAB SRH 16:18 | DX: R06.02 Shortness of breath (principal); R00.1 Bradycardia, unspecified; I50.9 Heart failure, unspecified | CPT/HCPCS: 90074; 91320 ==